=== PATIENT | male | born 1985 | race Caucasian/White ===

== ENCOUNTER 2024-02-10 15:24 | Emergency (ER) | payer OTHER, SELFPAY ==
[2024-02-10 15:29] VITALS: BP 145/86; PULSE 78; RESP 18; TEMP 36.4; O2SAT 97; BMI 26.6
--- NOTE | 2024-02-10 16:02 | ED.CHESTPAIN ---
HPI - Chest Pain General Chief Complaint: Chest Pain Stated Complaint: chest pain Time Seen by Provider: 02/10/24 15:28 History of Present Illness HPI narrative: This 38-year-old male comes in reporting some left anterior chest discomfort that comes and goes over the past 24 hours. He states that it is reproducible when he makes certain movements with his left arm. He does not report any nausea, vomiting, lightheadedness, shortness of breath, diaphoresis, or exercise intolerance. He does not have any cardiac risk factors. He states that he was shoveling heavy snow recently and wonders if this may have triggered these symptoms. Review of Systems Status of ROS Reports: 10 or more systems reviewed and unremarkable except as noted in History and below Narrative Constitutional: No fevers, no weight gain or loss. Eyes: No discharge. No vision changes. HENT: No congestion, no sore throat, no ear pain. Cardiovascular: No palpitations. Respiratory: No shortness of breath, no wheezes, no cough. Gastrointestinal: No abdominal pain, no vomiting, no diarrhea. Genitourinary: No dysuria, no hematuria. Musculoskeletal: Normal range of motion. Skin: No rashes, no pruritis. Neurological: No dizziness, weakness, sensory change, speech change. Endo/Heme/Allergies: No bruising or bleeding. No polydipsia. Pysch: no suicidality, no anxiety, no insomnia. All other systems reviewed and are negative. Exam Narrative Exam Narrative: Constitutional: Well-developed, well-nourished, no acute distress. HEENT: Normocephalic, atraumatic. Neck: Normal range of motion. Nontender. Supple. Heart: Regular. No murmurs. Normal rate. Intact distal pulses. Lungs: Clear to auscultation. No chest discomfort. No wheezes, rhonchi, or rales. Abdomen: Normal bowel sounds. Nontender. No rebound tenderness. Genitalia: Deferred. Back: No midline tenderness. Normal range of motion. Extremities: Normal range of motion. No injury. Skin: Intact. No rash. Warm. No erythema or pallor. Neurologic: No altered sensation. No weakness. Alert and oriented. Psychiatric: No suicidality. No anxiety or depression. No insomnia. Nursing notes and vitals signs are reviewed. Const Vital Signs, click to edit/add: Vital Signs - 24 hr 02/10/24 15:29 Temperature 97.5 F L Pulse Rate [Right Pulse Oximeter] 78 Respiratory Rate 18 Blood Pressure [Right Upper Arm] 145/86 H Pulse Oximetry 97 Oxygen Delivery Method Room Air Course Vital Signs Vital signs: Initial Vital Signs Temperature 97.5 F L 02/10/24 15:29 Temperature Source Temporal Artery Scan 02/10/24 15:29 Pulse Rate 78 02/10/24 15:29 Pulse Rhythm Regular 02/10/24 15:29 Pulse Strength 3+ Normal 02/10/24 15:29 Respiratory Rate 18 02/10/24 15:29 Blood Pressure 145/86 H 02/10/24 15:29 Blood Pressure Mean 105 02/10/24 15:29 Blood Pressure Position Sitting 02/10/24 15:29 Pulse Oximetry 97 02/10/24 15:29 Oxygen Delivery Method Room Air 02/10/24 15:29 Vital Signs Temperature 97.5 F L 02/10/24 15:29 Pulse Rate 78 02/10/24 15:29 Respiratory Rate 18 02/10/24 15:29 Blood Pressure 145/86 H 02/10/24 15:29 Pulse Oximetry 97 02/10/24 15:29 Oxygen Delivery Method Room Air 02/10/24 15:29 Temperature 97.5 F L 02/10/24 15:29 Pulse Rate 78 02/10/24 15:29 Respiratory Rate 18 02/10/24 15:29 Blood Pressure 145/86 H 02/10/24 15:29 Pulse Oximetry 97 02/10/24 15:29 Oxygen Delivery Method Room Air 02/10/24 15:29 MDM - Chest Pain MDM Narrative Medical decision making narrative: This patient comes in with reproducible chest discomfort suggesting chest wall pain. He was recently shoveling some heavy snow. He does not have any cardiac risk factors and his signs and symptoms are not suspicious for intrathoracic cause of his pain. I did discuss lab and imaging options beyond EKG and these were declined in a process of shared decision making. ECG Data Attestation: I personally reviewed and interpreted this ECG as follows: Interpretation: Normal sinus rhythm. Rate is 68 beats per minute. There are no ST or T-wave abnormalities. Discharge Plan Discharge Clinical Impression: Acute chest wall pain Patient Disposition: Home, Self-Care Condition: Stable Additional Instructions: Use [id number] medicines as needed and directed. Activity as tolerated. Follow up with MD or return if worsening. Stand Alone Forms: [email or web address] Info Instructions
== END 2024-02-10 16:18 | disposition home or self-care (01) ==
PROVIDERS: Emergency Provider Emergency Medicine Emergency Medical Services
DX: R07.89 Other chest pain (principal)
CPT/HCPCS: 93005; 99284

== ENCOUNTER 2024-02-11 09:59 | Emergency (ER) | payer OTHER, SELFPAY ==
[2024-02-11 10:06] VITALS: BP 137/79; PULSE 82; RESP 12; TEMP 37.3; O2SAT 96; BMI 26.6
--- NOTE | 2024-02-11 10:55 | ED_ITS ---
HPI - General Adult General Chief complaint: Arrhythmia/Palpitations Stated complaint: spiking heartrate Time Seen by Provider: 02/11/24 10:43 Source: patient Mode of arrival: ambulatory Limitations: no limitations History of Present Illness HPI narrative: 38-year-old male coming in today complaining of elevated heart rate. He states that this morning his pulse went up to 125 and stayed between 100-125 for about an hour. He denies feeling dizzy or lightheaded. Denies any chest pain. No nausea or vomiting. He does state that he has not had any caffeine this week and this morning was the 1st time he has had it again since he ran out of coffee filters. He did come to the ER yesterday with chest pain and his workup was unremarkable. He states that this morning again, he did not have any recurrent chest pain. He measured his pulse via his apple watch. Related Data Home Medications Medication Instructions Recorded Confirmed No Known Home Medications 02/11/24 02/11/24 Allergies Allergy/AdvReac Type Severity Reaction Status Date / Time No Known Drug Allergies Allergy Verified 02/11/24 10:12 Review of Systems Status of ROS: Reports: 10 or more systems reviewed and unremarkable except as noted in History and below PFSH [facility] Social History Smoking Status: Never smoker Do you use any of these nicotine containing products: None Second hand tobacco smoke exposure: No How often do you have a drink containing alcohol: never How often do you have six or more drinks on one occasion: Never AUDIT-C Alcohol total score: 0 Non-prescribed substance use: marijuana (any form) service: No Exam Narrative: Exam Narrative: Well-nourished well-developed patient in no acute distress. Alert and oriented. Answers questions appropriately. Mood and affect are appropriate. Thoughts are goal oriented and rational. No tangential or magical thinking noted. Patient speaks in full sentences without needing to catch his breath. HEENT: Normocephalic atraumatic. Pupils are equally round reactive to light. Extraocular muscles are intact. Conjunctivae are moist without any icterus no andre. Moist mucous membranes. Cardiovascular: Heart is regular rate and rhythm S1 and S2 are present without any murmurs. Lungs: Clear to auscultation bilaterally no wheezes rhonchi or rales are a ppreciated. Patient takes deep breaths without any discomfort. Skin: Well perfused. Const: Vital Signs, click to edit/add: Vital Signs - 24 hr 02/11/24 10:06 Temperature 99.2 F Pulse Rate [Pulse Oximeter] 82 Respiratory Rate 12 Blood Pressure [Le ft Upper Arm] 137/79 Pulse Oximetry 96 Oxygen Delivery Me thod Room Air Course Course ED Course: EKG shows normal sinus rhythm with a pulse of 72. Vital Signs Vital signs: Initial Vital Signs Temperature 99.2 F 02/11/24 10:06 Temperature Source Temporal Artery Scan 02/11/24 10:06 Pulse Rate 82 02/11/24 10:06 Respiratory Rate 12 02/11/24 10:06 Blood Pressure 137/79 02/11/24 10:06 Blood Pressure Mean 98 02/11/24 10:06 Blood Pressure Position Sitting 02/11/24 10:06 Pulse Oximetry 96 02/11/24 10:06 Oxygen Delivery Method Room Air 02/11/24 10:06 Vital Signs Temperature 99.2 F 02/11/24 10:06 Pulse Rate 82 02/11/24 10:06 Respiratory Rate 12 02/11/24 10:06 Blood Pressure 137/79 02/11/24 10:06 Pulse Oximetry 96 02/11/24 10:06 Oxygen Delivery Method Room Air 02/11/24 10:06 Temperature 99.2 F 02/11/24 10:06 Pulse Rate 82 02/11/24 10:06 Respiratory Rate 12 02/11/24 10:06 Blood Pressure 137/79 02/11/24 10:06 Pulse Oximetry 96 02/11/24 10:06 Oxygen Delivery Method Room Air 02/11/24 10:06 Medical Decision Making [facility] Narrative Medical decision making narrative: 38-year-old male with an episode of tachycardia now resolved. Recommended if this should occur again, he should return to the ER while it is happening. Also, recommend decreasing his daily dose of caffeine. Medical Records Medical records reviewed: Yes I reviewed the patient's medical records ECG Data Attestation: I personally reviewed and interpreted this ECG as follows: Discharge Plan Discharge Clinical Impression: Palpitations Patient Disposition: Home, Self-Care Condition: Stable Additional Instructions: Recommend you return to the ER while elevated pulse is noticed. Recommend you decrease your daily caffeine intake. Prescriptions: No Action No Known Home Medications Follow Up/Referrals: Provider,Not a Local [Primary Care Provider] - Stand Alone Forms: [facility] Info Instructions
== END 2024-02-11 11:10 | disposition home or self-care (01) ==
PROVIDERS: Emergency Provider Family Medicine
DX: R00.2 Palpitations (principal)
CPT/HCPCS: 93005; 99284

== ENCOUNTER 2024-03-14 09:09 | Outpatient (CLI) | payer OTHER, SELFPAY | END 2024-03-14 09:10 | disposition home or self-care (01) | PROVIDERS: PCP Physician Assistant Medical; Visit Provider Physician Assistant Medical | DX: Z13.220 Encounter for screening for lipoid disorders (principal); Z13.228 Encounter for screening for other metabolic disorders; Z13.29 Encounter for screening for other suspected endocrine disorder; Z11.3 Encounter for screening for infections with a predominantly sexual mode of transmission; Z11.59 Encounter for screening for other viral diseases | CPT/HCPCS: 80053; 80061; 84443; 86592; 86703; 86706; 86803; 87340; 87491; 87591 ==

== ENCOUNTER 2024-08-04 06:01 | Emergency (ER) | payer OTHER, SELFPAY ==
[2024-08-04 06:09] VITALS: BP 138/86; PULSE 96; RESP 16; TEMP 36.6; O2SAT 98; BMI 24.3
--- NOTE | 2024-08-04 06:13 | ED_ITS ---
HPI - General Adult General Chief complaint: Animal Bite Stated complaint: Dog bite lip laceration Time Seen by Provider: 08/04/24 06:13 History of Present Illness HPI narrative: bit in lip/face by his pet dog about an hour ago, the dog is his pet and vaccines are UTD. dog was asleep and he tried to push it out of the bed and it snapped at him. behaving normally otherwise. 39-year-old man presenting to the emergency department after sustaining dog bite and claw negron to his face by his small dog apparently he surprise trying to remove from the bed. Dog is fully vaccinated. Has managed to control the bleeding. Up-to-date on own tetanus. He is to be a part of wedding pictures this weekend Related Data Home Medications ?Medication ?Instructions ?Recorded ?Confirmed No Known Home Medications 02/11/24 03/14/24 Allergies Allergy/AdvReac Type Severity Reaction Status Date / Time No Known Drug Allergies Allergy Verified 03/14/24 08:58 Review of Systems Status of ROS: Reports: 6 or more systems reviewed and unremarkable except as noted in History and below [employer] [facility] [facility] Surgical History History of wisdom tooth extraction ?K08.409 - Partial loss of teeth, unspecified cause, unspecified class (ICD- 10) Social History What is your current living situation?: I presently have a place to live Problems where you live: no known problems In the past 12 months, utilities in danger of being shut off: no In past 12 months, lack of transportation kept you from medical appts, meetings, work, or getting things needed for daily living: no In the past 12 mos, have been you worried that your food would run out before you had money to buy more?: never true In the past 12 mos, the food you bought just didn't last and you didn't have money to buy more?: never true Smoking Status: Never smoker Do you use any of these nicotine containing products: None Second hand tobacco smoke exposure: No How often do you have a drink containing alcohol: never How often do you have six or more drinks on one occasion: Never AUDIT-C Alcohol total score: 0 Non-prescribed substance use: marijuana (any form) How often does anyone, including family, friends and others, physically hurt you : never How often does anyone, including family, friends and others, insult or talk down to you: never How often does anyone, including family, friends and others, threaten you with harm: never How often does anyone, including family, friends and others, scream or curse at you: never Little interest or pleasure in doing things: not at all Feeling down, depressed, or hopeless: not at all service: No Exam Narrative: Exam Narrative: Pleasant. Dried blood some areas of his face. Gapping vertical right upper lip laceration 2 cm crossing the vermilion border. Orbiculis edwardo looks to be intact and is visible. Bleeds easily. There is a small vertical intradermal laceration also on the vermilion aspect of the left lower lip. Gaps a little bit. There short scratches on the bridge of the nose that he thinks are probably from claws. Const: Vital Signs, click to edit/add: Vital Signs - 24 hr 08/04/24 06:09 08/04/24 07:36 Temperature 98 F 98 F Pulse Rate [Pulse Oximeter] 96 96 Respiratory Rate 16 16 Blood Pressure [Ri ght Upper Arm] 138/86 138/86 Pulse Oximetry 98 Oxygen Delivery Me thod Room Air Documenting provider has reviewed patient's vital signs: yes Course Vital Signs Vital signs: Initial Vital Signs Temperature 98 F 08/04/24 06:09 Temperature Source Temporal Artery Scan 08/04/24 06:09 Pulse Rate 96 08/04/24 06:09 Respiratory Rate 16 08/04/24 06:09 Blood Pressure 138/86 08/04/24 06:09 Blood Pressure Mean 103 08/04/24 06:09 Blood Pressure Position Sitting 08/04/24 06:09 Pulse Oximetry 98 08/04/24 06:09 Oxygen Delivery Method Room Air 08/04/24 06:09 Vital Signs Temperature 98 F 08/04/24 06:09 Pulse Rate 96 08/04/24 06:09 Respiratory Rate 16 08/04/24 06:09 Blood Pressure 138/86 08/04/24 06:09 Pulse Oximetry 98 08/04/24 06:09 Oxygen Delivery Method Room Air 08/04/24 06:09 Temperature 98 F 08/04/24 07:36 Pulse Rate 96 08/04/24 07:36 Respiratory Rate 16 08/04/24 07:36 Blood Pressure 138/86 08/04/24 07:36 Pulse Oximetry 98 08/04/24 06:09 Oxygen Delivery Method Room Air 08/04/24 06:09 Medications Administered Medications: Discontinued Medications Generic Name Dose Route Start Last Admin Trade Name Ivon PRN Reason Stop Dose Admin Lidocaine HCl 3 ml 08/04/24 06:19 08/04/24 06:25 Lidocaine 1% 5 Ml (Pf) 5 Ml Vial INJECTION 08/04/24 06:20 3 ml ONCE ONE Administration Medical Decision Making MDM Narrative Medical decision making narrative: Will need repair. Infraorbital block with was done on the right with 1.5 mL of 1% lidocaine and resulted in excellent anesthesia. Cleansed with Hibiclens and water and light-pressure normal saline. Able to approximate with interrupted Ethilon sutures without need for internals. Very nicely approximated and good control of bleeding. Antibiotic ointment and Band- Aid. Did tuck 1 suture in the left lower lip Tolerated all quite well. See patient discharge plan for further discussion Discharge Plan Discharge Clinical Impression: Dog bite, Laceration of lip Patient Disposition: Home, Self-Care Condition: Improved Additional Instructions: sutures out in 5 days. I think you could remove the suture in the lower lip in 2 days time. antibiotic ointment for 3 days and then to a dry dressing. Can creatively cut Band-Aids within the wrapper to better fit over your nose and upper lip. ok to get wet but try not to soak while sutures are in. for further scar reduction/wound healing if desired -- after the scab falls off, can apply daily vitamin e oil or something like maderma or silicone-containing ointments or bandaids daily. especially protect from sun exposure for the first 9 - 12 months. Watch for spreading redness after 2 days accompanied by heat, swelling, marked increase in pain, purulent drainage. Prescriptions: No Action No Known Home Medications Follow Up/Referrals: Provider,Not a Local [Primary Care Provider] - Stand Alone Forms: [facility]
[2024-08-04] MEDS: LIDOCAINE 1% 5 ml (pf) 5 ML VIAL 3 ML INJECTION (06:25)
[2024-08-04 07:36] VITALS: BP 138/86; PULSE 96; RESP 16; TEMP 36.6
== END 2024-08-04 07:37 | disposition home or self-care (01) ==
PROVIDERS: Emergency Provider Family Medicine
DX: S01.511A Laceration without foreign body of lip, initial encounter (principal); W54.0XXA Bitten by dog, initial encounter
CPT/HCPCS: 12011; 99283; 99284